=== PATIENT | female | born 1985 | race American Indian/Alaskan Native ===

== ENCOUNTER 2016-06-14 15:36 | Emergency (ER) | payer OTHER ==
[2016-06-14 17:39] LABS: Basophils % (Auto) 0.5 % (0.0-1.8); Eosinophils % (Auto) 0.2 % (0.0-4.3); Hematocrit 41.9 % (30.3-42.9); Hemoglobin 13.8 gm/dl (10.1-14.3); Mean Corpuscular HGB Conc 33 % (30-34); Mean Corpuscular Hemoglobin 29 pg (28-32); Mean Corpuscular Volume 89 fl (79-97); Platelet Count 374 K/mm3 (140-440); Red Blood Count 4.72 M/mm3 (3.65-5.03); Red Cell Distribution Width 12.9 % (13.2-15.2); White Blood Count 14.3 K/mm3 (4.5-11.0)
[2016-06-14 17:59] LABS: Anion Gap 19 mmol/L; Blood Urea Nitrogen 12 mg/dL (7-17); Calcium 8.7 mg/dL (8.4-10.2); Carbon Dioxide 24 mmol/L (22-30); Chloride 98.4 mmol/L (98-107); Glucose 146 mg/dL (65-100); Potassium 3.7 mmol/L (3.6-5.0); Sodium 138 mmol/L (137-145)
[2016-06-14] MEDS ORDERED: TYLENOL ONE (20:21)
[2016-06-14] MEDS ORDERED: TYLENOL PO ONE (20:24)
--- NOTE | 2016-06-15 00:35 | Emergency Department Report ---
ED Chest Pain HPI - General Chief Complaint: Chest Pain Stated Complaint: CHEST PAIN/BACK PAIN/NECK PAIN Time Seen by Provider: 06/15/16 00:32 Source: patient Mode of arrival: Ambulatory Limitations: No Limitations - History of Present Illness Severity scale (0 -10): 7 - Related Data Allergies Allergy/AdvReac Type Severity Reaction Status Date / Time No Known Allergies Allergy Verified 06/14/16 20:27 ED Review of Systems ROS: Stated complaint: CHEST PAIN/BACK PAIN/NECK PAIN Other details as noted in HPI ED Past Medical Hx - Surgical History Hx Cholecystectomy: Yes - Social History Smoking Status: Never Smoker Substance Use Type: Alcohol ED Physical Exam - General Limitations: No Limitations ED Course Vital Signs 06/14/16 06/14/16 17:10 20:34 Temperature 98.0 F 98.9 F Pulse Rate 91 H 79 Respiratory 20 18 Rate Blood Pressure 147/93 158/103 O2 Sat by Pulse 98 98 Oximetry ED Medical Decision Making - Lab Data Result diagrams: 06/14/16 17:23 06/14/16 17:23 - EKG Data -: EKG Interpreted by Me ([id number]) EKG shows normal: sinus rhythm, axis (normal), intervals (QTc:438ms), ST-T waves ((-)ST changes, no STEMI) Rate: normal (80 bpm) Critical care attestation.: If time is entered above; I have spent that time in minutes in the direct care of this critically ill patient, excluding procedure time. ED Disposition Condition: Stable Referrals: PRIMARY CARE, [Primary Care Provider] - 3-5 Days
[2016-06-15] MEDS ORDERED: ROXICODONE PO ONE (00:48)
--- NOTE | 2016-06-15 00:50 | Emergency Department Report ---
ED ENT HPI - General Chief complaint: Dental/Oral Stated complaint: Dental pain Time Seen by Provider: 06/15/16 00:32 Source: patient Mode of arrival: Ambulatory Limitations: No Limitations - History of Present Illness Initial comments: Patient is a 30-year-old female with no past medical history presenting with left upper molar tooth pain. Patient reports she has a cavity that she has not had taken care. For the past few days she's been having intermittent tooth pain and in an attempt to alleviate the pain, she has been taking 12 tablets of Motrin and Tylenol for the last 2 days. She last took the tylenol yesterday and the motrin along with "goody powders" today. Also, associated intermittent chest pain and abdominal pain this morning. Pt reports the chest pain and abdominal pain have resolved. Pt is going to see her dentist within the next 2 days. Otherwise no fevers, chills, NVD, JAVIER, dizziness, back pain, SOB, trauma, dysuria, travel, or sick contacts - Related Data Previous Rx's Medication Instructions Recorded Last Taken Type Amoxicillin/K Clav Tab [Augmentin 1 each PO Q12HR #20 tablet 06/15/16 Unknown Rx 500 MG TAB] HYDROcodone/APAP 5-325 [[place] 1 each PO Q6HR PRN #12 tablet 06/15/16 Unknown Rx 5/325] Allergies Allergy/AdvReac Type Severity Reaction Status Date / Time No Known Allergies Allergy Verified 06/14/16 20:27 ED Dental HPI - General Chief complaint: Chest Pain Stated complaint: CHEST PAIN/BACK PAIN/NECK PAIN Time Seen by Provider: 06/15/16 00:32 Source: patient Mode of arrival: Ambulatory Limitations: No Limitations - Related Data Previous Rx's Medication Instructions Recorded Last Taken Type Amoxicillin/K Clav Tab [Augmentin 1 each PO Q12HR #20 tablet 06/15/16 Unknown Rx 500 MG TAB] HYDROcodone/APAP 5-325 [[place] 1 each PO Q6HR PRN #12 tablet 06/15/16 Unknown Rx 5/325] Allergies Allergy/AdvReac Type Severity Reaction Status Date / Time No Known Allergies Allergy Verified 06/14/16 20:27 ED Review of Systems ROS: Stated complaint: CHEST PAIN/BACK PAIN/NECK PAIN Other details as noted in HPI Comment: All other systems reviewed and negative ED Past Medical Hx - Surgical History Hx Cholecystectomy: Yes - Social History Smoking Status: Never Smoker Substance Use Type: Alcohol - Medications Home Medications: Home Medications Medication Instructions Recorded Confirmed Last Taken Type Amoxicillin/K Clav Tab [Augmentin 1 each PO Q12HR #20 tablet 06/15/16 Unknown Rx 500 MG TAB] HYDROcodone/APAP 5-325 [[place] 1 each PO Q6HR PRN #12 tablet 06/15/16 Unknown Rx 5/325] ED Physical Exam - General Limitations: No Limitations General appearance: alert, in no apparent distress - Head Head exam: Present: atraumatic, normocephalic - Eye Eye exam: Present: normal appearance - ENT ENT exam: Present: mucous membranes moist, other (Left upper molar caries with mild gingival swelling and erythema. No drainage, no fractured teeth) - Neck Neck exam: Present: normal inspection - Respiratory Respiratory exam: Present: normal lung sounds bilaterally. Absent: respiratory distress - Cardiovascular Cardiovascular Exam: Present: regular rate, normal rhythm. Absent: systolic murmur, diastolic murmur, rubs, gallop - GI/Abdominal GI/Abdominal exam: Present: soft, normal bowel sounds. Absent: distended, tenderness, guarding, rebound - Extremities Exam Extremities exam: Present: normal inspection - Back Exam Back exam: Present: normal inspection - Neurological Exam Neurological exam: Present: alert, oriented X3 - Psychiatric Psychiatric exam: Present: normal affect, normal mood - Skin Skin exam: Present: warm, dry, intact, normal color. Absent: rash ED Course Vital Signs 06/14/16 06/14/16 06/15/16 17:10 20:34 01:09 Temperature 98.0 F 98.9 F Pulse Rate 91 H 79 Respiratory 20 18 16 Rate Blood Pressure 147/93 158/103 O2 Sat by Pulse 98 98 Oximetry ED Medical Decision Making - Lab Data Result diagrams: 06/14/16 17:23 06/14/16 17:23 - Medical Decision Making Counseled the patient on how to properly take OTC medicine. I'm giving her a Rx for norco and advised her NOT to take any other OTC pain medications with this pain medication, patient understood Critical care attestation.: If time is entered above; I have spent that time in minutes in the direct care of this critically ill patient, excluding procedure time. ED Disposition Clinical Impression: Tooth ache, Dental caries, Chest wall pain Disposition: DISCHARGED TO HOME OR SELFCARE Is pt being admited?: No Condition: Stable Instructions: Chest Pain (ED), Dental Caries (ED), Toothache (ED) Prescriptions: Amoxicillin/K Clav Tab [Augmentin 500 MG TAB] 1 each PO Q12HR #20 tablet HYDROcodone/APAP 5-325 [[place] 5/325] 1 each PO Q6HR PRN #12 tablet PRN Reason: Pain Referrals: PRIMARY CARE, [Primary Care Provider] - 3-5 Days Forms: Work/School Release Form(ED)
[2016-06-15 01:12] LABS: Alanine Aminotransferase 10 units/L (7-56); Albumin/Globulin Ratio 1.2 %; Alkaline Phosphatase 77 units/L (35-129); Total Protein 7.3 g/dL (6.3-8.2)
[2016-06-15 01:16] LABS: Bilirubin,Direct < 0.2 mg/dL (0-0.2)
[2016-06-15 02:04] VITALS: BP 142/90
--- NOTE | 2016-06-15 09:03 | XRay Report ---
CHEST TWO VIEWS: 06/15/16 CLINICAL: Chest pain. COMPARISON: None FINDINGS: Normal heart and pulmonary vasculature. The lungs are normally expanded and clear.The bones and soft tissues are unremarkable. IMPRESSION: Normal chest.
== END 2016-06-15 02:04 | disposition home or self-care (01) ==
LOC: ED 15:36
DX: K02.9 Dental caries, unspecified (principal); R07.89 Other chest pain; Z90.49 Acquired absence of other specified parts of digestive tract
CPT/HCPCS: 36415; 71020; 80048; 80074; 81025; 84484; 85025; 93005; 93010; 99285